=== PATIENT | male | born 1965 | race American Indian/Alaskan Native ===

== ENCOUNTER 2016-07-17 16:55 | Emergency (ER) | payer BC ==
[2016-07-17 17:10] VITALS: BP 171/101
== END 2016-07-18 04:08 | disposition left against medical advice (07) ==
LOC: ED 16:55
DX: J02.9 Acute pharyngitis, unspecified (principal); R50.9 Fever, unspecified; M79.1 Myalgia; Z53.21 Procedure and treatment not carried out due to patient leaving prior to being seen by health care provider

== ENCOUNTER 2017-10-10 16:59 | Emergency (ER) | payer BC ==
[2017-10-10] MEDS ORDERED: ULTRAM PO ONE (20:10)
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
--- NOTE | 2017-10-10 22:11 | Cat Scan Report ---
FINAL REPORT PROCEDURE: CT head without contrast. TECHNIQUE: Computerized tomography of the head was performed without contrast material. HISTORY: headache s/p trauma at work COMPARISON: No prior studies are available for comparison. FINDINGS: The ventricles are normal in size. The mandujano matter and white matter appear normal. There are no mass lesions. There is no intracranial hemorrhage. The calvarium appears intact. The mastoid air cells are clear. There is opacification of the right sphenoid sinus and the right posterior ethmoid air cell. IMPRESSION: Normal study of the brain. Right ethmoid and sphenoid sinusitis.
--- NOTE | 2017-10-10 22:13 | XRay Report ---
FINAL REPORT PROCEDURE: Lumbar spine. TECHNIQUE: Three views. HISTORY: low back pain s/p work injury COMPARISON: No prior studies are available for comparison. FINDINGS: The lumbar vertebrae have normal height and alignment. There are no fractures. There is no spondylolisthesis. The disc spaces are well maintained. The sacrum and sacroiliac joints appear normal. IMPRESSION: Normal study.
[2017-10-10 22:56] VITALS: BP 130/70
== END 2017-10-10 22:55 | disposition home or self-care (01) ==
LOC: ED 16:59
DX: S39.012A Strain of muscle, fascia and tendon of lower back, initial encounter (principal); G44.319 Acute post-traumatic headache, not intractable; X58.XXXA Exposure to other specified factors, initial encounter; Y93.89 Activity, other specified; Y92.89 Other specified places as the place of occurrence of the external cause; Y99.8 Other external cause status
CPT/HCPCS: 70450; 72100; 99284

== ENCOUNTER 2018-03-02 08:03 | Emergency (ER) | payer SELFPAY ==
[2018-03-02 08:51] VITALS: BP 198/116
== END 2018-03-02 09:30 | disposition left against medical advice (07) ==
LOC: ED 08:03
DX: M25.562 Pain in left knee (principal); Z53.21 Procedure and treatment not carried out due to patient leaving prior to being seen by health care provider

== ENCOUNTER 2018-09-05 04:00 | Emergency (ER) | payer SELFPAY ==
[2018-09-05 04:06] VITALS: BP 125/66
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
--- NOTE | 2018-09-05 04:38 | XRay Report ---
PROCEDURE: XR KNEE 3V RT TECHNIQUE: 3 views right knee HISTORY: Unable to bend right knee and pain COMPARISONS: None FINDINGS: Proximal imaged tibial nail with interlocking screws appears intact. No periarticular right knee frac ture identified. Mild right knee osteoarthrosis. Extensor mechanism enthesophytes. Thickening of the patellar tendon silhouette. No definite joint effusion. IMPRESSION: No right knee periarticular fracture, gross malalignment or joint effusion. Proximal aspect of patien t's tibial nail appears intact. Thickening of the patellar tendon silhouette may be due to tendinitis . This document is electronically signed by Chris Haider MD., September 05 2018 04:36:03 AM ET
[2018-09-05] MEDS ORDERED: IBUPROFEN PO ONE (05:11)
[2018-09-05] MEDS ORDERED: IBUPROFEN ONE (05:11)
[2018-09-05] MEDS ORDERED: ULTRAM PO ONE (05:11)
[2018-09-05] MEDS ORDERED: ULTRAM ONE (05:13)
[2018-09-05] MEDS ORDERED: DECADRON IM ONE (05:33)
[2018-09-05] MEDS ORDERED: DECADRON ONE (05:38)
== END 2018-09-05 05:50 | disposition home or self-care (01) ==
LOC: ED 04:00
DX: M25.561 Pain in right knee (principal); M54.31 Sciatica, right side; G89.29 Other chronic pain; I10 Essential (primary) hypertension; M10.9 Gout, unspecified
CPT/HCPCS: 73562; 96372; 99283; J1100

== ENCOUNTER 2020-12-14 05:43 | Emergency (ER) | payer OTHER ==
[2020-12-14 05:53] VITALS: BP 150/87
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
== END 2020-12-14 07:39 | disposition home or self-care (01) ==
LOC: ED 05:43
DX: H60.91 Unspecified otitis externa, right ear (principal); I10 Essential (primary) hypertension
CPT/HCPCS: 99281